=== PATIENT | female | born 1995 | race Caucasian/White ===

== ENCOUNTER 2016-07-13 21:27 | Emergency (ER) | payer BC, MEDICAID ==
[2016-07-13 21:40] VITALS: BP 121/69
--- NOTE | 2016-07-13 21:56 | EDM.PDOC ---
ED HPI GENERAL MEDICAL PROBLEM - General Chief Complaint: Drug or Alcohol Abuse Stated Complaint: 36 WKS PG MEDICAL CLEARENCE Time Seen by Provider: 07/13/16 21:38 Source of Information: Reports: Patient, Family History Limitations: Reports: No Limitations - History of Present Illness INITIAL COMMENTS - FREE TEXT/NARRATIVE: The patient presents for medical clearance for [facility] treatment. The patient is 36 weeks gestation and she has last used meth 1 month ago. She was just informed they can take her in [facility] for treatment for 1 month. She denies using any other drugs. She is . She has had trouble with this . She has had cramping, spotting and low back pain. She has been checked many times by Dr Calvo. She currently has no cramping or bleeding. She has some low back pain but that is normal for her. She still feels the baby moving. 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: Musculoskeletal History: Reports: RA Neurological History: Reports: Migraines Psychiatric History: Reports: Anxiety, Depression, PTSD Social & Family History - Tobacco Use Smoking Status *Q: Current Every Day Smoker Years of Tobacco use: 9 Packs/Tins Daily: 1 - Caffeine Use Caffeine Use: Reports: None - Recreational Drug Use Recreational Drug Use: Yes Drug Use in Last 12 Months: Yes Recreational Drug Type: Reports: Methamphetamine Recreational Drug Use Frequency: Not Used In Over 1 Month ED ROS GENERAL - Review of Systems Review Of Systems: See Below Constitutional: Reports: No Symptoms HEENT: Reports: No Symptoms Respiratory: Reports: No Symptoms Cardiovascular: Reports: No Symptoms Endocrine: Reports: No Symptoms GI/Abdominal: Reports: No Symptoms : Reports: No Symptoms Musculoskeletal: Reports: Back Pain (Low back pain) Skin: Reports: No Symptoms ED EXAM, BEHAVIORAL HEALTH - Physical Exam Exam: See Below Exam Limited By: No Limitations General Appearance: Alert, No Apparent Distress Ears: Normal External Exam Nose: Normal Inspection Head: Atraumatic, Normocephalic Neck: Normal Inspection Respiratory/Chest: No Respiratory Distress, Lungs Clear, Normal Breath Sounds Cardiovascular: Regular Rate, Rhythm, No Edema, No Murmur GI/Abdominal: Soft, Non-Tender, Other (Gravid uterus into the upper abdomen) COURSE, BEHAVIORAL HEALTH COMP - Course Vital Signs: Last Vital Signs Temp 97.8 F 07/13/16 21:37 Pulse 85 07/13/16 21:37 Resp 22 H 07/13/16 21:37 BP 121/69 07/13/16 21:37 Pulse Ox 97 07/13/16 21:37 Orders, Labs, Meds: Active Orders 24 hr Category Date Time Status Cardiac Monitoring [RC] . DIRECTED Care 07/13/16 21:51 Active Laboratory Tests 07/13/16 07/13/16 07/13/16 Range/Units 22:15 22:15 22:40 WBC 11.76 H (3.98-10.04) K/mm3 RBC 3.48 L (3.98-5.22) M/mm3 Hgb 10.5 L (11.2-15.7) gm/L Hct 32.4 L (34.1-44.9) % MCV 93.1 (79.4-94.8) fl MCH 30.2 (25.6-32.2) pg MCHC 32.4 (32.2-35.5) g/dl RDW Std Deviation 43.7 (36.4-46.3) fL Plt Count 262 (182-369) K/mm3 MPV 9.3 L (9.4-12.3) fl Neut % (Auto) 65.9 (34.0-71.1) % Lymph % (Auto) 26.4 (19.3-51.7) % [place] % (Auto) 6.4 (4.7-12.5) % Eos % (Auto) 0.6 L (0.7-5.8) Baso % (Auto) 0.1 (0.1-1.2) % Neut # (Auto) 7.75 H (1.56-6.13) K/mm3 Lymph # (Auto) 3.11 (1.18-3.74) K/mm3 [place] # (Auto) 0.75 H (0.24-0.36) K/mm3 Eos # (Auto) 0.07 (0.04-0.36) K/mm3 Baso # (Auto) 0.01 (0.01-0.08) K/mm3 Sodium 142 (136-145) mEq/L Potassium 3.5 (3.5-5.1) mEq/L Chloride 108 H (98-107) mEq/L Carbon Dioxide 25 (21-32) mEq/L Anion Gap 12.5 (5-15) BUN 5 L (7-18) mg/dL Creatinine 0.6 (0.55-1.02) mg/dL Est Cr Clr Drug Dosing TNP Estimated GFR (MDRD) > 60 (>60) mL/min BUN/Creatinine Ratio 8.3 L (14-18) Glucose 98 (74-106) mg/dL Calcium 8.4 L (8.5-10.1) mg/dL Total Bilirubin 0.2 (0.2-1.0) mg/dL AST 14 L (15-37) U/L ALT 16 (14-59) U/L Alkaline Phosphatase 129 H (46-116) U/L Total Protein 6.3 L (6.4-8.2) g/dl Albumin 2.6 L (3.4-5.0) g/dl Globulin 3.7 gm/dL Albumin/Globulin Ratio 0.7 L (1-2) TSH 3rd Generation 1.082 (0.358-3.74) uIU/mL Urine Opiates Screen Negative (NEGATIVE) Ur Buprenorphine Scrn Negative (NEGATIVE) Ur Oxycodone Screen Negative (NEGATIVE) Urine Methadone Screen Negative (NEGATIVE) Ur Propoxyphene Screen Negative (NEGATIVE) Ur Barbiturates Screen Negative (NEGATIVE) Ur Tricyclics Screen Negative (NEGATIVE) Ur Phencyclidine Scrn Negative (NEGATIVE) Ur Amphetamine Screen Negative (NEGATIVE) U Methamphetamines Scrn Negative (NEGATIVE) U Benzodiazepines Scrn Negative (NEGATIVE) U Cocaine Metab Screen Negative (NEGATIVE) U Marijuana (THC) Screen Negative (NEGATIVE) Ethyl Alcohol 0.00 (0.00) gm% Re-Assessment/Re-Exam: Her WBC was a little elevated at 11.76. Her Hgb was a little low at 10.5. Her TSH was normal at 1.082. Her CMP looks good. Her UDS was negative. Her ETOH was negative. My nurse had some trouble finding lincoln tones. I looked with the [place] and FHTs were 140 and there was activity. I called the residential care center and updated them. Her father will be taking her. Departure - Departure Time of Disposition: 23:35 Disposition: Home, Self-Care 01 Condition: good Clinical Impression: Drug abuse, Methamphetamine abuse Qualifiers: Weeks of gestation: 36 weeks Qualified Code(s): Z3A.36 - 36 weeks gestation of - Discharge Information Referrals: Dallas Calvo MD [Primary Care Provider] - Additional Instructions: Take your medication as prescribed. Follow up with Dr Calvo as scheduled. Go directly to the [facility]. They are expecting you. - My Orders Last 24 Hours: My Active Orders 07/13/16 21:51 Cardiac Monitoring [RC] . DIRECTED - Assessment/Plan Last 24 Hours: My Active Orders 07/13/16 21:51 Cardiac Monitoring [RC] . DIRECTED
== END 2016-07-13 23:55 | disposition home or self-care (01) ==
LOC: JD.ED 21:27
DX: O99.323 Drug use complicating pregnancy, third trimester (principal); O99.333 Smoking (tobacco) complicating pregnancy, third trimester; F15.10 Other stimulant abuse, uncomplicated; F17.210 Nicotine dependence, cigarettes, uncomplicated; M06.9 Rheumatoid arthritis, unspecified; G43.909 Migraine, unspecified, not intractable, without status migrainosus; Z3A.36 36 weeks gestation of pregnancy; Z79.899 Other long term (current) drug therapy
CPT/HCPCS: 36415; 80053; 80306; 84443; 85025; 99283; G0480

== ENCOUNTER 2016-08-06 07:19 | Inpatient (IN) | payer BC, MEDICAID ==
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
[~2016-08-06 07:19] MED LIST: Lidocaine 1% 50 ML MDV INJECT ONE; Nalbuphine 20 MG/1 ML Amp IVPUSH PRN; Ondansetron 4 MG/2 ML SDV IVPUSH PRN; Oxytocin/Lactated Ringers 10 UNIT/1,000 ML BAG IV SCH; Sodium Chloride 0.9% 10 ML Syringe FLUSH PRN
[2016-08-06] MEDS: Lactated Ringers 1,000 ML IV SCH ×2 (11:40→17:27)
[2016-08-06] MEDS ORDERED: ePHEDrine 50 MG/ML SDV IVPUSH PRN ×2 (12:48→21:45)
[2016-08-06] MEDS ORDERED: fentaNYL 100 MCG/2 ML SDV EPIDUR PRN (12:48)
[2016-08-06] MEDS ORDERED: diphenhydrAMINE 50 MG/ML SDV IVPUSH PRN ×2 (12:48→21:45)
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
[2016-08-06] MEDS ORDERED: Bupivacaine 0.25% 10 ML SDV ONE (13:00)
[2016-08-06] MEDS ORDERED: Bupivacaine/fentaNYL/NS 100 ML Bag EPIDUR SCH (13:00)
[2016-08-06] MEDS ORDERED: Pneumococcal Polyvalent-23 Vaccine 0.5 ML SDV IM ONE (15:21)
[2016-08-06] MEDS ORDERED: Acetaminophen 325 MG Tab PO PRN ×2 (18:47→21:45)
[2016-08-06] MEDS ORDERED: Calcium Carbonate 500 MG Tab.Chew PO PRN (20:18)
--- NOTE | 2016-08-06 20:38 | PCM.SN ---
- Free Text/Narrative Note: Cervix anterior rim, 100%, soft, anterior, vertex TONIA +1 station, Cat I FHR.
[2016-08-06] MEDS ORDERED: Oxytocin/Lactated Ringers 10 UNIT/1,000 ML BAG IV SCH (21:02)
--- NOTE | 2016-08-06 21:23 | PCM.DEL ---
L & D Note - General Info Date of Service: 08/06/16 Mother's Due Date: 08/12/16 - Delivery Note Labor: augmented by ARM, induced by oxytocin Delivery Outcome: Livebirth (male liveborn 2102 hrs. on Tuesday08/06/2016 TONIA nuchal cord 1 easily reduced over the head weight 30/1/50 grams 6 pounds 15.1 ounces Apgars 8/9 history of substance abuse [facility] child protective services aware of patient's presence in labor and delivery Dr. Rapp supervisor asphalt paving present at delivery) Delivery Mode: Spontaneous Type of Forceps Used: none Presentation: Right Occiput Anterior (TONIA) Nuchal Cord: Present (1 reduced over the head) Prep: Povidone-Iodine (Betadine Anesthesia Type: Epidural (good relief from epidural) Amniotic Fluid Description: Clear Episiotomy Type: None Laceration: none Placenta: intact, spontaneous (delivered at 2105 hrs. on Tuesday08/06/2016) Cord: 3 vessels Estimated Blood Loss: 250 Resuscitation Needed: No [place]: Suctioned, Bulb Syringe, Stimulated, Warmed, [place] Used Provider: Jason Reyes Score 1 min: 8 Score 5 min: 9 - Patient Data Vitals - most recent: Last Vital Signs Temp 99 F 08/06/16 12:58 Pulse 89 08/06/16 12:58 Resp 20 08/06/16 12:58 BP 104/65 08/06/16 12:58 Pulse Ox 96 08/06/16 11:30 Weight - most recent: 139 lb I&O - last 24 hours: Intake & Output 08/06/16 08/06/16 08/06/16 06:59 14:59 22:59 Intake Total 910 Balance 910 Lab Results last 24 hrs: Laboratory Results - last 24 hr 08/06/16 08/06/16 08/06/16 Range/Units 11:30 12:20 12:20 WBC 9.24 (3.98-10.04) K/mm3 RBC 3.46 L (3.98-5.22) M/mm3 Hgb 10.5 L (11.2-15.7) gm/L Hct 32.5 L (34.1-44.9) % MCV 93.9 (79.4-94.8) fl MCH 30.3 (25.6-32.2) pg MCHC 32.3 (32.2-35.5) g/dl RDW Std Deviation 49.8 H (36.4-46.3) fL Plt Count 257 (182-369) K/mm3 MPV 10.0 (9.4-12.3) fl Neut % (Auto) 65.2 (34.0-71.1) % Lymph % (Auto) 27.3 (19.3-51.7) % [place] % (Auto) 6.5 (4.7-12.5) % Eos % (Auto) 0.6 L (0.7-5.8) Baso % (Auto) 0.1 (0.1-1.2) % Neut # (Auto) 6.02 (1.56-6.13) K/mm3 Lymph # (Auto) 2.52 (1.18-3.74) K/mm3 [place] # (Auto) 0.60 H (0.24-0.36) K/mm3 Eos # (Auto) 0.06 (0.04-0.36) K/mm3 Baso # (Auto) 0.01 (0.01-0.08) K/mm3 Urine Opiates Screen Presumptive positive H (NEGATIVE) Ur Buprenorphine Scrn Negative (NEGATIVE) Ur Oxycodone Screen Negative (NEGATIVE) Urine Methadone Screen Negative (NEGATIVE) Ur Propoxyphene Screen Negative (NEGATIVE) Ur Barbiturates Screen Negative (NEGATIVE) Ur Tricyclics Screen Negative (NEGATIVE) Ur Phencyclidine Scrn Negative (NEGATIVE) Ur Amphetamine Screen Negative (NEGATIVE) U Methamphetamines Scrn Negative (NEGATIVE) U Benzodiazepines Scrn Negative (NEGATIVE) U Cocaine Metab Screen Negative (NEGATIVE) U Marijuana (THC) Screen Negative (NEGATIVE) Hep Bs Antigen Nonreactive (NONREACTIVE) Hepatitis C Antibody (NEGATIVE) HIV-1 Ab Rapid Screen (NEGATIVE) 08/06/16 Range/Units 12:20 WBC (3.98-10.04) K/mm3 RBC (3.98-5.22) M/mm3 Hgb (11.2-15.7) gm/L Hct (34.1-44.9) % MCV (79.4-94.8) fl MCH (25.6-32.2) pg MCHC (32.2-35.5) g/dl RDW Std Deviation (36.4-46.3) fL Plt Count (182-369) K/mm3 MPV (9.4-12.3) fl Neut % (Auto) (34.0-71.1) % Lymph % (Auto) (19.3-51.7) % [place] % (Auto) (4.7-12.5) % Eos % (Auto) (0.7-5.8) Baso % (Auto) (0.1-1.2) % Neut # (Auto) (1.56-6.13) K/mm3 Lymph # (Auto) (1.18-3.74) K/mm3 [place] # (Auto) (0.24-0.36) K/mm3 Eos # (Auto) (0.04-0.36) K/mm3 Baso # (Auto) (0.01-0.08) K/mm3 Urine Opiates Screen (NEGATIVE) Ur Buprenorphine Scrn (NEGATIVE) Ur Oxycodone Screen (NEGATIVE) Urine Methadone Screen (NEGATIVE) Ur Propoxyphene Screen (NEGATIVE) Ur Barbiturates Screen (NEGATIVE) Ur Tricyclics Screen (NEGATIVE) Ur Phencyclidine Scrn (NEGATIVE) Ur Amphetamine Screen (NEGATIVE) U Methamphetamines Scrn (NEGATIVE) U Benzodiazepines Scrn (NEGATIVE) U Cocaine Metab Screen (NEGATIVE) U Marijuana (THC) Screen (NEGATIVE) Hep Bs Antigen (NONREACTIVE) Hepatitis C Antibody Negative (NEGATIVE) HIV-1 Ab Rapid Screen Negative (NEGATIVE) Med Orders - Current: Current Medications Acetaminophen (Tylenol) 325 mg PO Q4H PRN PRN Reason: Pain Last Admin: 08/06/16 19:30 Dose: 325 mg Buspirone HCl (Buspar) 15 mg PO TID AMIE Calcium Carbonate/Glycine (Tums) 1,000 mg PO Q2HR PRN PRN Reason: Indigestion Diphenhydramine HCl (Benadryl) 25 mg IVPUSH Q6H PRN PRN Reason: pruritis Ephedrine Sulfate (Ephedrine Sulfate) 5 mg IVPUSH ASDIRECTED PRN PRN Reason: Hypotension Fentanyl (Sublimaze) 100 mcg EPIDUR Q3H PRN PRN Reason: Pain Last Admin: 08/06/16 17:29 Dose: 100 mcg Fentanyl/Bupivacaine HCl (Fentanyl/Bupivacaine/Ns 2 Mcg-0.125% 100 Ml) 100 ml EPIDUR ASDIRECTED AMIE Last Admin: 08/06/16 17:29 Dose: 100 ml Lactated Ringer's (Ringers, Lactated) 1,000 mls @ 100 mls/hr IV ASDIRECTED AMIE Last Admin: 08/06/16 17:27 Dose: 100 mls/hr Oxytocin/Lactated Ringer's (Pitocin In Lr 10 Units/1,000 Ml) 10 unit in 1,000 mls @ 12 mls/hr IV TITRATE AMIE; 2 MUNITS/MIN PRN Reason: Protocol Last Titration: 08/06/16 17:10 Dose: 10 munits/min, 60 mls/hr Nalbuphine HCl (Nubain) 10 mg IVPUSH Q2H PRN PRN Reason: Pain (moderate 4-6) Ondansetron HCl (Zofran) 4 mg IVPUSH Q4H PRN PRN Reason: Nausea/Vomiting Sodium Chloride (Saline Flush) 10 ml FLUSH ASDIRECTED PRN PRN Reason: Keep Vein Open Discontinued Medications Lidocaine HCl (Xylocaine 1%) 10 ml INJECT ONETIME ONE Stop: 08/06/16 06:32 Pneumococcal Polyvalent Vaccine (Pneumovax 23) 0.5 ml IM .ONCE ONE Stop: 08/06/16 15:22 - Problem List & Annotations (1) 39 weeks gestation of SNOMED Code(s): 89193873 Code(s): Z3A.39 - 39 WEEKS GESTATION OF Status: Acute Current Visit: Yes (2) Nuchal cord without compression, delivered, current hospitalization SNOMED Code(s): 69353714 Code(s): O69.81X0 - LABOR AND DEL COMP BY CORD AROUND NECK, W/O COMPRSN, UNSP Status: Acute Current Visit: Yes (3) History of illicit drug use SNOMED Code(s): 647470160 Code(s): Z87.898 - PERSONAL HISTORY OF OTHER SPECIFIED CONDITIONS Status: Acute Current Visit: Yes - Problem List Review Problem List Initiated/Reviewed/Updated: No - My Orders Last 24 Hours: My Active Orders 08/06/16 18:47 Acetaminophen [Tylenol] 325 mg PO Q4H PRN 08/06/16 21:00 busPIRone [Buspar] 15 mg PO TID - Plan Plan:: Assessment: 1. Term intrauterine at 39-1/7 weeks gestational ageadmitted for elective induction of labor. 2. Group B strep screen negative 3. History of drug use early in the and prior to pregnancypatient now on outpatient treatment . Drug screens since beginning of June 2016 have been negative. Has a history of opiate, marijuana and methamphetamine drug use. History of smoking. 4. Acne-treated and improved with Cleocin T therapy. 5. Desiring epidural in labor and delivery. 6. Plans to nurse. 7. [facility] involved with the patient's care. director personal is Kimberly at [phone]. Plan: 1. Pitocin/artificial rupture membranes induction on 08/06/2016 2. Epidural when necessary 3. [facility] to be involved with decisions regarding custody of the baby.
[2016-08-06] MEDS ORDERED: Misoprostol 200 MCG Tab ONE (21:24)
[2016-08-06] MEDS ORDERED: Dextrose 5%-0.45% NaCl 1,000 ML IV SCH (21:45)
[2016-08-06] MEDS ORDERED: Lanolin 100% Cream 7 GM Tube TOP PRN (21:45)
[2016-08-06] MEDS ORDERED: Docusate Sodium 100 MG Cap PO PRN (21:45)
[2016-08-06] MEDS ORDERED: Dextrose 5%-Lactated Ringers 1,000 ML IV SCH (21:45)
[2016-08-06] MEDS ORDERED: Witch Hazel Medicated Pads 100/Jar TOP PRN (21:45)
[2016-08-06] MEDS ORDERED: Naloxone 0.4 MG/ML SDV IVPUSH PRN (21:45)
[2016-08-06] MEDS ORDERED: Sodium Chloride 0.9% 10 ML Syringe FLUSH PRN (21:45)
[2016-08-06] MEDS ORDERED: Misoprostol 200 MCG Tab PO SCH (21:45)
[2016-08-06] MEDS: BUSPIRONE 5 MG PO SCH (22:00)
[2016-08-06] MEDS: Ibuprofen 600 MG Tab PO PRN (23:01)
[2016-08-07] MEDS: BUSPIRONE 5 MG PO SCH (09:23)
[2016-08-07] MEDS: Ibuprofen 600 MG Tab PO PRN ×2 (09:24→16:55)
--- NOTE | 2016-08-07 10:54 | PCM.SN ---
- Free Text/Narrative Note: Breast feeding, uterus involuting normally, no heavy vaginal bleeding, no leg cramping. Nicotine patch 21 mg daily
[2016-08-07] MEDS ORDERED: Nicotine 21 MG/24 Hr Patch TRDERM SCH (11:00)
--- NOTE | 2016-08-07 12:38 | PCM48HPAN ---
Post Anesthesia Note - EVALUATION WITHIN 48HRS OF ANESTHETIC Vital Signs in Normal Range: Yes Patient Participated in Evaluation: Yes Respiratory Function Stable: Yes Airway Patent: Yes Cardiovascular Function Stable: Yes Hydration Status Stable: Yes Pain Control Satisfactory: Yes Nausea and Vomiting Control Satisfactory: Yes Mental Status Recovered: Yes
[2016-08-07] MEDS: BUSPIRONE 15 MG PO SCH ×2 (16:05→21:37)
[2016-08-08] MEDS: Ibuprofen 600 MG Tab PO PRN ×2 (02:42→08:22)
--- NOTE | 2016-08-08 05:34 | PCM.DCSUM1 ---
Discharge Summary - Hospital Course Free Text/Narrative:: [facility] LIVE L/D Delivery Note Patient Name: JACKIE YUSUF Date of : 89 Patient Status: Inpatient Attending Provider: Jason Reyes Date: 08/06/16 21:12 Initialization Date: 08/06/16 21:12 L & D Note - General Info Date of Service: 08/06/16 Mother's Due Date: 08/12/16 - Delivery Note Labor: augmented by ARM, induced by oxytocin Delivery Outcome: Livebirth (male liveborn 2102 hrs. on Tuesday08/06/2016 TONIA nuchal cord 1 easily reduced over the head weight 30/1/50 grams 6 pounds 15.1 ounces Apgars 8/9 history of substance abuse [facility] child protective services aware of patient's presence in labor and delivery Dr. Rapp circuit judge present at delivery) Infant Delivery Mode: Spontaneous Type of Forceps Used: none Presentation: Right Occiput Anterior (TONIA) Nuchal Cord: Present (1 reduced over the head) Prep: Povidone-Iodine (Betadine Anesthesia Type: Epidural (good relief from epidural) Amniotic Fluid Description: Clear Episiotomy Type: None Laceration: none Placenta: intact, spontaneous (delivered at 2105 hrs. on Tuesday08/06/2016) Cord: 3 vessels Estimated Blood Loss: 250 Resuscitation Needed: No : Suctioned, Bulb Syringe, Stimulated, Warmed, Lincoln Used Provider: Jason Reyes Score 1 min: 8 Score 5 min: 9 - Patient Data Vitals - most recent: Last Vital Signs Temp 99 F 08/06/16 12:58 Pulse 89 08/06/16 12:58 Resp 20 08/06/16 12:58 BP 104/65 08/06/16 12:58 Pulse Ox 96 08/06/16 11:30 Weight - most recent: 139 lb I&O - last 24 hours: Intake & Output 08/06/16 08/06/16 08/06/16 06:59 14:59 22:59 Intake Total 910 Balance 910 Lab Results last 24 hrs: Laboratory Results - last 24 hr 08/06/16 08/06/1608/06/17 Range/Units 11:30 12:20 12:20 WBC 9.24 (3.98-10.04) K/mm3 RBC 3.46 L (3.98-5.22) M/mm3 Hgb 10.5 L (11.2-15.7) gm/L Hct 32.5 L (34.1-44.9) % MCV 93.9 (79.4-94.8) fl MCH 30.3 (25.6-32.2) pg MCHC 32.3 (32.2-35.5) g/dl RDW Std Deviation 49.8 H (36.4-46.3) fL Plt Count 257 (182-369) K/mm3 MPV 10.0 (9.4-12.3) fl Neut % (Auto) 65.2 (34.0-71.1) % Lymph % (Auto) 27.3 (19.3-51.7) % [place] % (Auto) 6.5 (4.7-12.5) % Eos % (Auto) 0.6 L (0.7-5.8) Baso % (Auto) 0.1 (0.1-1.2) % Neut # (Auto) 6.02 (1.56-6.13) K/mm3 Lymph # (Auto) 2.52 (1.18-3.74) K/mm3 [place] # (Auto) 0.60 H (0.24-0.36) K/mm3 Eos # (Auto) 0.06 (0.04-0.36) K/mm3 Baso # (Auto) 0.01 (0.01-0.08) K/mm3 Urine Opiates Screen Presumptive positive H (NEGATIVE) Ur Buprenorphine Scrn Negative (NEGATIVE) Ur Oxycodone Screen Negative (NEGATIVE) Urine Methadone Screen Negative (NEGATIVE) Ur Propoxyphene Screen Negative (NEGATIVE) Ur Barbiturates Screen Negative (NEGATIVE) Ur Tricyclics Screen Negative (NEGATIVE) Ur Phencyclidine Scrn Negative (NEGATIVE) Ur Amphetamine Screen Negative (NEGATIVE) U Methamphetamines Scrn Negative (NEGATIVE) U Benzodiazepines Scrn Negative (NEGATIVE) U Cocaine Metab Screen Negative (NEGATIVE) U Marijuana (THC) Screen Negative (NEGATIVE) Hep Bs Antigen Nonreactive (NONREACTIVE) Hepatitis C Antibody (NEGATIVE) HIV-1 Ab Rapid Screen (NEGATIVE) 08/06/16 Range/Units 12:20 WBC (3.98-10.04) K/mm3 RBC (3.98-5.22) M/mm3 Hgb (11.2-15.7) gm/L Hct (34.1-44.9) % MCV (79.4-94.8) fl MCH (25.6-32.2) pg MCHC (32.2-35.5) g/dl RDW Std Deviation (36.4-46.3) fL Plt Count (182-369) K/mm3 MPV (9.4-12.3) fl Neut % (Auto) (34.0-71.1) % Lymph % (Auto) (19.3-51.7) % [place] % (Auto) (4.7-12.5) % Eos % (Auto) (0.7-5.8) Baso % (Auto) (0.1-1.2) % Neut # (Auto) (1.56-6.13) K/mm3 Lymph # (Auto) (1.18-3.74) K/mm3 [place] # (Auto) (0.24-0.36) K/mm3 Eos # (Auto) (0.04-0.36) K/mm3 Baso # (Auto) (0.01-0.08) K/mm3 Urine Opiates Screen (NEGATIVE) Ur Buprenorphine Scrn (NEGATIVE) Ur Oxycodone Screen (NEGATIVE) Urine Methadone Screen (NEGATIVE) Ur Propoxyphene Screen (NEGATIVE) Ur Barbiturates Screen (NEGATIVE) Ur Tricyclics Screen (NEGATIVE) Ur Phencyclidine Scrn (NEGATIVE) Ur Amphetamine Screen (NEGATIVE) U Methamphetamines Scrn (NEGATIVE) U Benzodiazepines Scrn (NEGATIVE) U Cocaine Metab Screen (NEGATIVE) U Marijuana (THC) Screen (NEGATIVE) Hep Bs Antigen (NONREACTIVE) Hepatitis C Antibody Negative (NEGATIVE) HIV-1 Ab Rapid Screen Negative (NEGATIVE) Med Orders - Current: Current Medications Acetaminophen (Tylenol) 325 mg PO Q4H PRN PRN Reason: Pain Last Admin: 08/06/16 19:30 Dose: 325 mg Buspirone HCl (Buspar) 15 mg PO TID AMIE Calcium Carbonate/Glycine (Tums) 1,000 mg PO Q2HR PRN PRN Reason: Indigestion Diphenhydramine HCl (Benadryl) 25 mg IVPUSH Q6H PRN PRN Reason: pruritis Ephedrine Sulfate (Ephedrine Sulfate) 5 mg IVPUSH ASDIRECTED PRN PRN Reason: Hypotension Fentanyl (Sublimaze) 100 mcg EPIDUR Q3H PRN PRN Reason: Pain Last Admin: 08/06/16 17:29 Dose: 100 mcg Fentanyl/Bupivacaine HCl (Fentanyl/Bupivacaine/Ns 2 Mcg-0.125% 100 Ml) 100 ml EPIDUR ASDIRECTED AMIE Last Admin: 08/06/16 17:29 Dose: 100 ml Lactated Ringer's (Ringers, Lactated) 1,000 mls @ 100 mls/hr IV ASDIRECTED AMIE Last Admin: 08/06/16 17:27 Dose: 100 mls/hr Oxytocin/Lactated Ringer's (Pitocin In Lr 10 Units/1,000 Ml) 10 unit in 1,000 mls @ 12 mls/hr IV TITRATE AMIE; 2 MUNITS/MIN PRN Reason: Protocol Last Titration: 08/06/16 17:10 Dose: 10 munits/min, 60 mls/hr Nalbuphine HCl (Nubain) 10 mg IVPUSH Q2H PRN PRN Reason: Pain (moderate 4-6) Ondansetron HCl (Zofran) 4 mg IVPUSH Q4H PRN PRN Reason: Nausea/Vomiting Sodium Chloride (Saline Flush) 10 ml FLUSH ASDIRECTED PRN PRN Reason: Keep Vein Open Discontinued Medications Lidocaine HCl (Xylocaine 1%) 10 ml INJECT ONETIME ONE Stop: 08/06/16 06:32 Pneumococcal Polyvalent Vaccine (Pneumovax 23) 0.5 ml IM .ONCE ONE Stop: 08/06/16 15:22 - Problem List & Annotations (1) 39 weeks gestation of SNOMED Code(s): 74270819 Code(s): Z3A.39 - 39 WEEKS GESTATION OF Status: Acute Current Visit: Yes (2) Nuchal cord without compression, delivered, current hospitalization SNOMED Code(s): 49291770 Code(s): O69.81X0 - LABOR AND DEL COMP BY CORD AROUND NECK, W/O COMPRSN, UNSP Status: Acute Current Visit: Yes (3) History of illicit drug use SNOMED Code(s): 984845638 Code(s): Z87.898 - PERSONAL HISTORY OF OTHER SPECIFIED CONDITIONS Status: Acute Current Visit: Yes - Problem List Review Problem List Initiated/Reviewed/Updated: No - My Orders Last 24 Hours: My Active Orders 08/06/16 18:47 Acetaminophen [Tylenol] 325 mg PO Q4H PRN 08/06/16 21:00 busPIRone [Buspar] 15 mg PO TID - Plan Plan:: Assessment: 1. Term intrauterine at 39-1/7 weeks gestational ageadmitted for elective induction of labor. 2. Group B strep screen negative 3. History of drug use early in the and prior to pregnancypatient now on outpatient treatment . Drug screens since beginning of June 2016 have been negative. Has a history of opiate, marijuana and methamphetamine drug use. History of smoking. 4. Acne-treated and improved with Cleocin T therapy. 5. Desiring epidural in labor and delivery. 6. Plans to nurse. 7. [facility] involved with the patient's care. personnel coordinator is Kimberly at [phone]. Plan: 1. Pitocin/artificial rupture membranes induction on 08/06/2016 2. Epidural when necessary 3. [facility] to be involved with decisions regarding custody of the baby. HPI Initial Comments: [facility] LIVE L/D Delivery Note Patient Name: JACKIE YUSUF Date of : 89 Patient Status: Inpatient Attending Provider: Jason Reyes Date: 08/06/16 21:12 Initialization Date: 08/06/16 21:12 L & D Note - General Info Date of Service: 08/06/16 Mother's Due Date: 08/12/16 - Delivery Note Labor: augmented by ARM, induced by oxytocin Delivery Outcome: Livebirth (male liveborn 2102 hrs. on Tuesday08/06/2016 TONIA nuchal cord 1 easily reduced over the head weight 30/1/50 grams 6 pounds 15.1 ounces Apgars 8/9 history of substance abuse [facility] child protective services aware of patient's presence in labor and delivery Dr. Rapp circuit judge present at delivery) Infant Delivery Mode: Spontaneous Type of Forceps Used: none Presentation: Right Occiput Anterior (TONIA) Nuchal Cord: Present (1 reduced over the head) Prep: Povidone-Iodine (Betadine Anesthesia Type: Epidural (good relief from epidural) Amniotic Fluid Description: Clear Episiotomy Type: None Laceration: none Placenta: intact, spontaneous (delivered at 2105 hrs. on Tuesday08/06/2016) Cord: 3 vessels Estimated Blood Loss: 250 Resuscitation Needed: No : Suctioned, Bulb Syringe, Stimulated, Warmed, Lincoln Used Provider: Jason Reyes Score 1 min: 8 Score 5 min: 9 - Patient Data Vitals - most recent: Last Vital Signs Temp 99 F 08/06/16 12:58 Pulse 89 08/06/16 12:58 Resp 20 08/06/16 12:58 BP 104/65 08/06/16 12:58 Pulse Ox 96 08/06/16 11:30 Weight - most recent: 139 lb I&O - last 24 hours: Intake & Output 08/06/16 08/06/16 08/06/16 06:59 14:59 22:59 Intake Total 910 Balance 910 Lab Results last 24 hrs: Laboratory Results - last 24 hr 08/06/16 08/06/16 08/06/16 Range/Units 11:30 12:20 12:20 WBC 9.24 (3.98-10.04) K/mm3 RBC 3.46 L (3.98-5.22) M/mm3 Hgb 10.5 L (11.2-15.7) gm/L Hct 32.5 L (34.1-44.9) % MCV 93.9 (79.4-94.8) fl MCH 30.3 (25.6-32.2) pg MCHC 32.3 (32.2-35.5) g/dl RDW Std Deviation 49.8 H (36.4-46.3) fL Plt Count 257 (182-369) K/mm3 MPV 10.0 (9.4-12.3) fl Neut % (Auto) 65.2 (34.0-71.1) % Lymph % (Auto) 27.3 (19.3-51.7) % [place] % (Auto) 6.5 (4.7-12.5) % Eos % (Auto) 0.6 L (0.7-5.8) Baso % (Auto) 0.1 (0.1-1.2) % Neut # (Auto) 6.02 (1.56-6.13) K/mm3 Lymph # (Auto) 2.52 (1.18-3.74) K/mm3 [place] # (Auto) 0.60 H (0.24-0.36) K/mm3 Eos # (Auto) 0.06 (0.04-0.36) K/mm3 Baso # (Auto) 0.01 (0.01-0.08) K/mm3 Urine Opiates Screen Presumptive positive H (NEGATIVE) Ur Buprenorphine Scrn Negative (NEGATIVE) Ur Oxycodone Screen Negative (NEGATIVE) Urine Methadone Screen Negative (NEGATIVE) Ur Propoxyphene Screen Negative (NEGATIVE) Ur Barbiturates Screen Negative (NEGATIVE) Ur Tricyclics Screen Negative (NEGATIVE) Ur Phencyclidine Scrn Negative (NEGATIVE) Ur Amphetamine Screen Negative (NEGATIVE) U Methamphetamines Scrn Negative (NEGATIVE) U Benzodiazepines Scrn Negative (NEGATIVE) U Cocaine Metab Screen Negative (NEGATIVE) U Marijuana (THC) Screen Negative (NEGATIVE) Hep Bs Antigen Nonreactive (NONREACTIVE) Hepatitis C Antibody (NEGATIVE) HIV-1 Ab Rapid Screen (NEGATIVE) 08/06/16 Range/Units 12:20 WBC (3.98-10.04) K/mm3 RBC (3.98-5.22) M/mm3 Hgb (11.2-15.7) gm/L Hct (34.1-44.9) % MCV (79.4-94.8) fl MCH (25.6-32.2) pg MCHC (32.2-35.5) g/dl RDW Std Deviation (36.4-46.3) fL Plt Count (182-369) K/mm3 MPV (9.4-12.3) fl Neut % (Auto) (34.0-71.1) % Lymph % (Auto) (19.3-51.7) % [place] % (Auto) (4.7-12.5) % Eos % (Auto) (0.7-5.8) Baso % (Auto) (0.1-1.2) % Neut # (Auto) (1.56-6.13) K/mm3 Lymph # (Auto) (1.18-3.74) K/mm3 [place] # (Auto) (0.24-0.36) K/mm3 Eos # (Auto) (0.04-0.36) K/mm3 Baso # (Auto) (0.01-0.08) K/mm3 Urine Opiates Screen (NEGATIVE) Ur Buprenorphine Scrn (NEGATIVE) Ur Oxycodone Screen (NEGATIVE) Urine Methadone Screen (NEGATIVE) Ur Propoxyphene Screen (NEGATIVE) Ur Barbiturates Screen (NEGATIVE) Ur Tricyclics Screen (NEGATIVE) Ur Phencyclidine Scrn (NEGATIVE) Ur Amphetamine Screen (NEGATIVE) U Methamphetamines Scrn (NEGATIVE) U Benzodiazepines Scrn (NEGATIVE) U Cocaine Metab Screen (NEGATIVE) U Marijuana (THC) Screen (NEGATIVE) Hep Bs Antigen (NONREACTIVE) Hepatitis C Antibody Negative (NEGATIVE) HIV-1 Ab Rapid Screen Negative (NEGATIVE) Med Orders - Current: Current Medications Acetaminophen (Tylenol) 325 mg PO Q4H PRN PRN Reason: Pain Last Admin: 08/06/16 19:30 Dose: 325 mg Buspirone HCl (Buspar) 15 mg PO TID AMIE Calcium Carbonate/Glycine (Tums) 1,000 mg PO Q2HR PRN PRN Reason: Indigestion Diphenhydramine HCl (Benadryl) 25 mg IVPUSH Q6H PRN PRN Reason: pruritis Ephedrine Sulfate (Ephedrine Sulfate) 5 mg IVPUSH ASDIRECTED PRN PRN Reason: Hypotension Fentanyl (Sublimaze) 100 mcg EPIDUR Q3H PRN PRN Reason: Pain Last Admin: 08/06/16 17:29 Dose: 100 mcg Fentanyl/Bupivacaine HCl (Fentanyl/Bupivacaine/Ns 2 Mcg-0.125% 100 Ml) 100 ml EPIDUR ASDIRECTED AMIE Last Admin: 08/06/16 17:29 Dose: 100 ml Lactated Ringer's (Ringers, Lactated) 1,000 mls @ 100 mls/hr IV ASDIRECTED AMIE Last Admin: 08/06/16 17:27 Dose: 100 mls/hr Oxytocin/Lactated Ringer's (Pitocin In Lr 10 Units/1,000 Ml) 10 unit in 1,000 mls @ 12 mls/hr IV TITRATE AMIE; 2 MUNITS/MIN PRN Reason: Protocol Last Titration: 08/06/16 17:10 Dose: 10 munits/min, 60 mls/hr Nalbuphine HCl (Nubain) 10 mg IVPUSH Q2H PRN PRN Reason: Pain (moderate 4-6) Ondansetron HCl (Zofran) 4 mg IVPUSH Q4H PRN PRN Reason: Nausea/Vomiting Sodium Chloride (Saline Flush) 10 ml FLUSH ASDIRECTED PRN PRN Reason: Keep Vein Open Discontinued Medications Lidocaine HCl (Xylocaine 1%) 10 ml INJECT ONETIME ONE Stop: 08/06/16 06:32 Pneumococcal Polyvalent Vaccine (Pneumovax 23) 0.5 ml IM .ONCE ONE Stop: 08/06/16 15:22 - Problem List & Annotations (1) 39 weeks gestation of SNOMED Code(s): 07283783 Code(s): Z3A.39 - 39 WEEKS GESTATION OF Status: Acute Current Visit: Yes (2) Nuchal cord without compression, delivered, current hospitalization SNOMED Code(s): 86133229 Code(s): O69.81X0 - LABOR AND DEL COMP BY CORD AROUND NECK, W/O COMPRSN, UNSP Status: Acute Current Visit: Yes (3) History of illicit drug use SNOMED Code(s): 298390804 Code(s): Z87.898 - PERSONAL HISTORY OF OTHER SPECIFIED CONDITIONS Status: Acute Current Visit: Yes - Problem List Review Problem List Initiated/Reviewed/Updated: No - My Orders Last 24 Hours: My Active Orders 08/06/16 18:47 Acetaminophen [Tylenol] 325 mg PO Q4H PRN 08/06/16 21:00 busPIRone [Buspar] 15 mg PO TID - Plan Plan:: Assessment: 1. Term intrauterine at 39-1/7 weeks gestational ageadmitted for elective induction of labor. 2. Group B strep screen negative 3. History of drug use early in the and prior to pregnancypatient now on outpatient treatment . Drug screens since beginning of June 2016 have been negative. Has a history of opiate, marijuana and methamphetamine drug use. History of smoking. 4. Acne-treated and improved with Cleocin T therapy. 5. Desiring epidural in labor and delivery. 6. Plans to nurse. 7. [facility] involved with the patient's care. personnel coordinator is Kimberly at [phone]. Plan: 1. Pitocin/artificial rupture membranes induction on 08/06/2016 2. Epidural when necessary 3. [facility] to be involved with decisions regarding custody of the baby. Brief History: [facility] LIVE . L/D Delivery Note. [facility]: [id number] Date of : Patient Status: Inpatient. Attending Provider: Jason Reyesount Number: [id number]. Date: 08/06/16 21:12Initialization Date: 08/06/16 21:12. L & D Note. - General Info. Date of Service: 08/06/16. Mother's Due Date: 08/12/16. - Delivery Note. Labor: augmented by ARM, induced by oxytocin. Delivery Outcome: Livebirth (male liveborn 2102 hrs. on Tuesday08/06/2016 TONIA nuchal cord 1 easily reduced over the head weight 30/1/50 grams 6 pounds 15.1 ounces Apgars 8/9 history of substance abuse [facility] child protective services aware of patient's presence in labor and delivery Dr. Rapp circuit judge present at delivery). Delivery Mode: Spontaneous. Type of Forceps Used: none. Presentation: Right Occiput Anterior (TONIA). Nuchal Cord: Present (1 reduced over the head). Prep: Povidone-Iodine (Betadine. Anesthesia Type: Epidural (good relief from epidural). Amniotic Fluid Description: Clear. Episiotomy Type: None. Laceration: none. Placenta: intact , spontaneous (delivered at 2105 hrs. on Tuesday08/06/2016). Cord: 3 vessels. Estimated Blood Loss: 250. Resuscitation Needed: No. : Suctioned, Bulb Syringe, Stimulated, Warmed, Lincoln Used. Provider: Jason Reyes. Score 1 min: 8. Score 5 min: 9. - Patient Data. Vitals - most recent: Last Vital Signs. Temp 99 F 08/06/16 12:58. Pulse 89 08/06/16 12:58. Resp 20 08/06/16 12:58. BP 104/65 08/06/16 12:58. Pulse Ox 96 08/06 11:30. Weight - most recent: 139 lb. I&O - last 24 hours: Intake & Output. 08/06/1705. 06:5914:5922:59. Intake [id number]. [id number]. Lab Results last 24 hrs: Laboratory Results - last 24 hr. /Range/Units. 11:3012:2012:20. WBC 9.24 (3.98-10.04) K/mm3. RBC 3.46 L (3.98-5.22) M/mm3. Hgb 10.5 L (11.2-15.7) gm/L. Hct 32.5 L ( 34.1-44.9) %. MCV 93.9 (79.4-94.8) fl. MCH 30.3 (25.6-32.2) pg. MCHC 32.3 (32.2-35.5) g/dl. RDW Std Deviation 49.8 H (36.4-46.3) fL. Plt Count 257 ( 182-369) K/mm3. MPV 10.0 (9.4-12.3) fl. Neut % (Auto) 65.2 (34.0-71.1) %. Lymph % (Auto) 27.3 (19.3-51.7) %. [place] % (Auto) 6.5 (4.7-12.5) %. Eos % ( Auto) 0.6 L (0.7-5.8). Baso % (Auto) 0.1 (0.1-1.2) %. Neut # (Auto) 6.02 ( 1.56-6.13) K/mm3. Lymph # (Auto) 2.52 (1.18-3.74) K/mm3. [place] # (Auto) 0.60 H (0.24-0.36) K/mm3. Eos # (Auto) 0.06 (0.04-0.36) K/mm3. Baso # (Auto) 0.01 (0.01-0.08) K/mm3. Urine Opiates Screen Presumptive positive H (NEGATIVE) . Ur Buprenorphine Scrn Negative (NEGATIVE). Ur Oxycodone Screen Negative ( NEGATIVE). Urine Methadone Screen Negative (NEGATIVE). Ur Propoxyphene Screen Negative (NEGATIVE). Ur Barbiturates Screen Negative (NEGATIVE). Ur Tricyclics Screen Negative (NEGATIVE). Ur Phencyclidine Scrn Negative (NEGATIVE ). Ur Amphetamine Screen Negative (NEGATIVE). U Methamphetamines Scrn Negative (NEGATIVE). U Benzodiazepines Scrn Negative (NEGATIVE). U Cocaine Metab Screen Negative (NEGATIVE). U Marijuana (THC) Screen Negative (NEGATIVE) . Hep Bs Antigen Nonreactive (NONREACTIVE). Hepatitis C Antibody (NEGATIVE). HIV-1 Ab Rapid Screen (NEGATIVE). 08/06/16Range/Units. 12:20. WBC (3.98-10.04 ) K/mm3. RBC (3.98-5.22) M/mm3. Hgb (11.2-15.7) gm/L. Hct (34.1-44.9) %. MCV (79.4-94.8) fl. MCH (25.6-32.2) pg. MCHC (32.2-35.5) g/dl. RDW Std Deviation (36.4-46.3) fL. Plt Count (182-369) K/mm3. MPV (9.4-12.3) fl. Neut % (Auto) (34.0-71.1) %. Lymph % (Auto) (19.3-51.7) %. [place] % (Auto) ( 4.7-12.5) %. Eos % (Auto) (0.7-5.8). Baso % (Auto) (0.1-1.2) %. Neut # ( Auto) (1.56-6.13) K/mm3. Lymph # (Auto) (1.18-3.74) K/mm3. [place] # (Auto) ( 0.24-0.36) K/mm3. Eos # (Auto) (0.04-0.36) K/mm3. Baso # (Auto) (0.01-0.08) K/mm3. Urine Opiates Screen (NEGATIVE). Ur Buprenorphine Scrn (NEGATIVE). Ur Oxycodone Screen (NEGATIVE). Urine Methadone Screen (NEGATIVE). Ur Propoxyphene Screen (NEGATIVE). Ur Barbiturates Screen (NEGATIVE). Ur Tricyclics Screen (NEGATIVE). Ur Phencyclidine Scrn (NEGATIVE). Ur Amphetamine Screen (NEGATIVE). U Methamphetamines Scrn (NEGATIVE). U Benzodiazepines Scrn (NEGATIVE). U Cocaine Metab Screen (NEGATIVE). U Marijuana (THC) Screen (NEGATIVE). Hep Bs Antigen (NONREACTIVE). Hepatitis C Antibody Negative (NEGATIVE). HIV-1 Ab Rapid Screen Negative (NEGATIVE). Med Orders - Current: Current Medications. Acetaminophen (Tylenol) 325 mg PO Q4H PRN. PRN Reason: Pain. Last Admin: 08/06/16 19:30 Dose: 325 mg. Buspirone HCl (Buspar) 15 mg PO TID AMIE. Calcium Carbonate/Glycine (Tums) 1,000 mg PO Q2HR PRN. PRN Reason: Indigestion. Diphenhydramine HCl (Benadryl) 25 mg IVPUSH Q6H PRN. PRN Reason: pruritis. Ephedrine Sulfate (Ephedrine Sulfate) 5 mg IVPUSH ASDIRECTED PRN. PRN Reason: Hypotension. Fentanyl (Sublimaze) 100 mcg EPIDUR Q3H PRN. PRN Reason: Pain. Last Admin: 08/06/16 17:29 Dose: 100 mcg. Fentanyl/Bupivacaine HCl (Fentanyl/Bupivacaine/Ns 2 Mcg-0.125% 100 Ml ) 100 ml EPIDUR ASDIRECTED AMIE. Last Admin: 08/06/16 17:29 Dose: 100 ml. Lactated Ringer's (Ringers, Lactated) 1,000 mls @ 100 mls/hr IV ASDIRECTED AMIE. Last Admin: 08/06/16 17:27 Dose: 100 mls/hr. Oxytocin/Lactated Ringer's (Pitocin In Lr 10 Units/1,000 Ml) 10 unit in 1,000 mls @ 12 mls/hr IV TITRATE AMIE; 2 MUNITS/MIN. PRN Reason: Protocol. Last Titration: 08/06/16 17:10 Dose: 10 munits/min, 60 mls/hr. Nalbuphine HCl (Nubain) 10 mg IVPUSH Q2H PRN. PRN Reason: Pain (moderate 4-6). Ondansetron HCl (Zofran) 4 mg IVPUSH Q4H PRN. PRN Reason: Nausea/Vomiting. Sodium Chloride (Saline Flush) 10 ml FLUSH ASDIRECTED PRN. PRN Reason: Keep Vein Open. Discontinued Medications. Lidocaine HCl (Xylocaine 1%) 10 ml INJECT ONETIME ONE. Stop: 08/06/16 06:32. Pneumococcal Polyvalent Vaccine (Pneumovax 23) 0.5 ml IM .ONCE ONE. Stop: 15:22. - Problem List & Annotations. (1) 39 weeks gestation of . SNOMED Code(s): 66612624. Code(s): Z3A.39 - 39 WEEKS GESTATION OF Status: Acute Current Visit: Yes. (2) Nuchal cord without compression, delivered, current hospitalization. SNOMED Code(s): 24276825. Code(s): O69.81X0 - LABOR AND DEL COMP BY CORD AROUND NECK, W/O COMPRSN, UNSP Status: Acute Current Visit: Yes. (3) History of illicit drug use. SNOMED Code(s): 908125320. Code(s): Z87.898 - PERSONAL HISTORY OF OTHER SPECIFIED CONDITIONS Status: Acute Current Visit: Yes. - Problem List Review. Problem List Initiated/Reviewed/Updated: No. - My Orders. Last 24 Hours: My Active Orders. 08/06/16 18:47. Acetaminophen [Tylenol] 325 mg PO Q4H PRN. 08/06/16 21:00. busPIRone [Buspar] 15 mg PO TID. - Plan. Plan:: Assessment : 1. Term intrauterine at 39-1/7 weeks gestational ageadmitted for elective induction of labor. 2. Group B strep screen negative. 3. History of drug use early in the and prior to pregnancypatient now on outpatient treatment . Drug screens since beginning of June 2016 have been negative. Has a history of opiate, marijuana and methamphetamine drug use. History of smoking. 4. Acne-treated and improved with Cleocin T therapy. 5. Desiring epidural in labor and delivery. 6. Plans to nurse. 7. [facility] involved with the patient's care. personnel coordinator is Kimberly at [phone]. Plan : 1. Pitocin/artificial rupture membranes induction on 08/06/2016. 2. Epidural when necessary. 3. [facility] outreach and education social worker to be involved with decisions regarding custody of the baby. - Discharge Data Discharge Date: 08/08/16 Discharge Disposition: Home, Self-Care 01 Condition: Good - Discharge Diagnosis/Problem(s) (1) 39 weeks gestation of SNOMED Code(s): 56780787 ICD Code: Z3A.39 - 39 WEEKS GESTATION OF Status: Acute Current Visit: Yes (2) Nuchal cord without compression, delivered, current hospitalization SNOMED Code(s): 36223139 ICD Code: O69.81X0 - LABOR AND DEL COMP BY CORD AROUND NECK, W/O COMPRSN, UNSP Status: Acute Current Visit: Yes (3) History of illicit drug use SNOMED Code(s): 106343576 ICD Code: Z87.898 - PERSONAL HISTORY OF OTHER SPECIFIED CONDITIONS Status: Acute Current Visit: Yes - Patient Summary/Data Complications: None Consults: None Hospital Course: Uneventful - Patient Instructions Diet: Heart Healthy Diet Driving: Do Not Drive (48 hours) Showering/Bathing: May Shower Notify Provider of: Fever, Increased Pain, Swelling and Redness, Drainage, Nausea and/or Vomiting Other/Special Instructions: Recommended to stop smoking - Discharge Plan Home Medications: Home Meds Vit37/Iron/Folic Acid [Prenata] 1 tab PO DAILY 07/13/16 [History] busPIRone [Buspar] 10 mg PO TID 07/13/16 [History] Acetaminophen [Tylenol] 650 mg PO Q4H PRN #0 tablet 08/08/16 [Rx] Docusate Sodium [Colace] 100 mg PO Q12H PRN #0 cap 08/08/16 [Rx] Ibuprofen [IJD: Ibuprofen] 600 mg PO Q6H PRN #0 tablet 08/08/16 [Rx] Witch Yanelis [Tucks] 1 pad TOP ASDIRECTED PRN #0 pad 08/08/16 [Rx] Referrals: Dallas Calvo MD [Primary Care Provider] - (4-6 weeks in [place]) - Discharge Summary/Plan Comment DC Time >30 min.: No - Patient Data Vitals - Most Recent: Last Vital Signs Temp 98.8 F 08/07/16 20:15 Pulse 67 08/07/16 20:15 Resp 16 06/17/17 20:15 BP 87/62 L 08/07/16 20:15 Pulse Ox 99 08/07/16 20:15 Weight - Most Recent: 139 lb I&O - Last 24 hours: Intake & Output 08/07/16 08/07/16 08/08/16 14:59 22:59 06:59 Intake Total 242 240 Balance 242 240 Lab Results - Last 24 hrs: Laboratory Results - last 24 hr 08/07/16 08/07/16 Range/Units 05:06 05:06 WBC 12.67 H (3.98-10.04) K/mm3 RBC 3.32 L (3.98-5.22) M/mm3 Hgb 10.1 L (11.2-15.7) gm/L Hct 31.1 L (34.1-44.9) % MCV 93.7 (79.4-94.8) fl MCH 30.4 (25.6-32.2) pg MCHC 32.5 (32.2-35.5) g/dl RDW Std Deviation 49.3 H (36.4-46.3) fL Plt Count 217 (182-369) K/mm3 MPV 10.0 (9.4-12.3) fl Neut % (Auto) 68.5 (34.0-71.1) % Lymph % (Auto) 24.3 (19.3-51.7) % [place] % (Auto) 6.2 (4.7-12.5) % Eos % (Auto) 0.6 L (0.7-5.8) Baso % (Auto) 0.1 (0.1-1.2) % Neut # (Auto) 8.68 H (1.56-6.13) K/mm3 Lymph # (Auto) 3.08 (1.18-3.74) K/mm3 [place] # (Auto) 0.79 H (0.24-0.36) K/mm3 Eos # (Auto) 0.07 (0.04-0.36) K/mm3 Baso # (Auto) 0.01 (0.01-0.08) K/mm3 Blood Type O NEGATIVE Gel Antibody Screen Positive Screen 0 ros/5 flds - neg RhIG Candidate? Yes Rhogam Indicated Yes, baby rh pos H Med Orders - Current: Current Medications Acetaminophen (Tylenol) 650 mg PO Q4H PRN PRN Reason: mild pain or fever Diphenhydramine HCl (Benadryl) 25 mg IVPUSH Q6H PRN PRN Reason: Itching or Nausea Docusate Sodium (Colace) 100 mg PO Q12H PRN PRN Reason: Constipation Emollient Ointment (Lansinoh Hpa) 0 gm TOP ASDIRECTED PRN PRN Reason: Sore Nipples Last Admin: 08/07/16 22:13 Dose: 1 tube Ephedrine Sulfate (Ephedrine Sulfate) 5 mg IVPUSH SEECOMMENT PRN PRN Reason: Other Oxytocin/Lactated Ringer's (Pitocin In Lr 10 Units/1,000 Ml) 10 unit in 1,000 mls @ 500 mls/hr IV TITRATE AMIE PRN Reason: Protocol Ibuprofen (Motrin) 600 mg PO Q6H PRN PRN Reason: mild pain or fever Last Admin: 08/08/16 02:42 Dose: 600 mg Miscellaneous Information (Remove Patch) 1 ea TRDERM DAILY [facility] Misoprostol (Cytotec) 200 mcg PO .ONETIME [facility] Last Admin: 08/06/16 21:15 Dose: 200 mcg Naloxone HCl (Narcan) 0.1 mg IVPUSH SEECOMMENT PRN PRN Reason: Respiratory Depression Nicotine (Habitrol) 21 mg TRDERM DAILY [facility] Last Admin: 08/07/16 11:32 Dose: 21 mg Buspirone 15mg Tab (Own Med) 15 each PO TID [facility] Last Admin: 08/07/16 21:37 Dose: 15 each Sodium Chloride (Saline Flush) 10 ml FLUSH ASDIRECTED PRN PRN Reason: Keep Vein Open Witbrittany Lynneel (Tucks) 1 pad TOP ASDIRECTED PRN PRN Reason: Perineal Comfort Measure Discontinued Medications Acetaminophen (Tylenol) 325 mg PO Q4H PRN PRN Reason: Pain Last Admin: 08/06/16 19:30 Dose: 325 mg Buspirone HCl (Buspar) 15 mg PO TID [facility] Last Admin: 08/07/16 09:23 Dose: 15 mg Calcium Carbonate/Glycine (Tums) 1,000 mg PO Q2HR PRN PRN Reason: Indigestion Last Admin: 08/06/16 23:00 Dose: 1,000 mg Diphenhydramine HCl (Benadryl) 25 mg IVPUSH Q6H PRN PRN Reason: pruritis Ephedrine Sulfate (Ephedrine Sulfate) 5 mg IVPUSH ASDIRECTED PRN PRN Reason: Hypotension Fentanyl (Sublimaze) 100 mcg EPIDUR Q3H PRN PRN Reason: Pain Last Admin: 08/06/16 17:29 Dose: 100 mcg Fentanyl/Bupivacaine HCl (Fentanyl/Bupivacaine/Ns 2 Mcg-0.125% 100 Ml) 100 ml EPIDUR ASDIRECTED AMIE Last Admin: 08/06/16 17:29 Dose: 100 ml Lactated Ringer's (Ringers, Lactated) 1,000 mls @ 100 mls/hr IV ASDIRECTED AMIE Last Admin: 08/06/16 17:27 Dose: 100 mls/hr Oxytocin/Lactated Ringer's (Pitocin In Lr 10 Units/1,000 Ml) 10 unit in 1,000 mls @ 12 mls/hr IV TITRATE AMIE; 2 MUNITS/MIN PRN Reason: Protocol Last Titration: 08/06/16 17:10 Dose: 10 munits/min, 60 mls/hr Lidocaine HCl (Xylocaine 1%) 10 ml INJECT ONETIME ONE Stop: 08/06/16 06:32 Last Admin: 08/07/16 20:02 Dose: Not Given Misoprostol (Cytotec) Confirm Administered Dose 400 mcg .ROUTE .STK-MED ONE Stop: 08/06/16 21:25 Last Admin: 08/07/16 01:58 Dose: Not Given Nalbuphine HCl (Nubain) 10 mg IVPUSH Q2H PRN PRN Reason: Pain (moderate 4-6) Ondansetron HCl (Zofran) 4 mg IVPUSH Q4H PRN PRN Reason: Nausea/Vomiting Pneumococcal Polyvalent Vaccine (Pneumovax 23) 0.5 ml IM .ONCE ONE Stop: 08/06/16 15:22 Sodium Chloride (Saline Flush) 10 ml FLUSH ASDIRECTED PRN PRN Reason: Keep Vein Open *Q Meaningful Use (DIS) - VTE *Q VTE Criteria *Q: - Stroke *Q Stroke Criteria *Q: - AMI *Q AMI Criteria *Q:
[2016-08-08 05:40] VITALS: BP 90/54
[2016-08-08] MEDS ORDERED: Pneumococcal Polyvalent-23 Vaccine 0.5 ML SDV SUBCUT ONE (08:07)
[2016-08-08] MEDS: BUSPIRONE 15 MG PO SCH (08:27)
== END 2016-08-08 09:23 | disposition home or self-care (01) | DRG 560 ==
LOC: JD.OB 07:19 → OBSVTOIN 21:02
PROVIDERS: ADMIT Obstetrics & Gynecology; ATTEND Obstetrics & Gynecology
PROC: 10E0XZZ Delivery of Products of Conception, External Approach (ICD-10-PCS; principal; 2016-08-06)
PROC: 3E033VJ Introduction of Other Hormone into Peripheral Vein, Percutaneous Approach (ICD-10-PCS; 2016-08-06)
PROC: 10907ZC Drainage of Amniotic Fluid, Therapeutic from Products of Conception, Via Natural or Artificial Opening (ICD-10-PCS; 2016-08-06)
PROC: 00HU33Z Insertion of Infusion Device into Spinal Canal, Percutaneous Approach (ICD-10-PCS; 2016-08-06)
PROC: 3E0R3CZ (ICD-10-PCS; 2016-08-06)
PROC: 3E0234Z Introduction of Serum, Toxoid and Vaccine into Muscle, Percutaneous Approach (ICD-10-PCS; 2016-08-08)
DX: O99.334 Smoking (tobacco) complicating childbirth (principal); O99.324 Drug use complicating childbirth; O69.81X0 Labor and delivery complicated by cord around neck, without compression, not applicable or unspecified; Z3A.39 39 weeks gestation of pregnancy; Z37.0 Single live birth; Z23 Encounter for immunization
CPT/HCPCS: 36415; 80306; 85025; 85461; 86592; 86803; 86850; 86870; 86900; 86901; 87340; 87449; 90732; A9270-GY; G0480; J2590; J2790; J3010; J7120

== ENCOUNTER 2021-06-24 19:11 | Emergency (ER) | payer BC, MEDICAID ==
[2021-06-24 19:37] VITALS: BP 115/80; PULSE 57
[2021-06-24] MEDS ORDERED: Nicotine 21 MG/24 Hr Patch TRDERM ONE (19:56)
== END 2021-06-24 20:07 ==
LOC: JD.ED 19:11 → SUPCPDRO 19:11 → JD.ED 20:07
DX: S01.01XA Laceration without foreign body of scalp, initial encounter (principal); Z28.310 Unvaccinated for COVID-19; Z72.0 Tobacco use; W22.09XA Striking against other stationary object, initial encounter
CPT/HCPCS: 99282; A9270